=== PATIENT | female | born 1980 | race Caucasian/White ===

== ENCOUNTER 2017-09-12 05:43 | Day surgery (SDC) | payer OTHER ==
--- NOTE | 2017-09-11 21:21 | GHP ---
[f rep st] HISTORY AND PHYSICAL DATE OF ADMISSION: 09/12/2017 HISTORY OF PRESENT ILLNESS: Patient is a 36-year-old 3, term 0, 1, A1, living 1, who presents on 09/07/2017, for new OB. On the day of the new OB, patient had an ultrasound that showed size less than dates by 9 days and SIUP with no cardiac activity. Questionable uterine septum. in left horn. Right horn empty. Yolk sac is seen. Gestational sac is seen. Cardiac activity is not seen. Embryo is seen. number is 1. Gestational sac location is in the fundal left horn. Gestational age by LMP was supposed to be 8 weeks and 1 day. By ultrasound 6 weeks and 6 days. This is thought to be a missed AB. The patient denies bleeding, leaking, cramping. MEDICAL HISTORY: Borderline anemia, occasional pelvic cramping, mild nausea. No vomiting. Breast tenderness. History of exercise-induced asthma, outgrown, has never been intubated. History of depression as a teen, took Celexa. SURGICAL HISTORY: [place] teeth extraction, D and C, major accident, fractured right clavicle at 8 years old. Special diet, limits dairy. PREVIOUS HISTORY: In 2009 an EAB. In 10/19/2011, a female at 4 pounds 1 ounce at 33-3/7 weeks, 13 hours of labor, vaginally, PPROM at [facility]. GYNECOLOGICAL HISTORY: Menarche at 13 years old. Intervals are 28 days. Length are 7-9 days of light. Last menstrual period was 07/12/2017, certain, normal. test positive on 08/16/2017. LABS: The patient has not had any labs drawn. Needs blood type drawn and for possible RhoGAM if needed. Previous blood type with other , patient was O positive, antibody negative. Rubella titer was nonimmune. Hepatitis was negative. HIV was negative. Patient with this was requesting Zika testing because she went to [place]. PHYSICAL EXAMINATION: GENERAL: Patient was awake, alert, oriented x3. LUNGS: Clear bilaterally. ABDOMEN: Bowel sounds are positive in all 4 quadrants. EXTREMITIES: DTRs were 1+ bilaterally. Homans sign was negative bilaterally. ASSESSMENT AND PLAN: The patient was given risks, benefits, and alternatives to misoprostol, waiting x2 weeks, as well as D and C, and patient has chosen D and C as her option for care with a missed AB. Dr. Owens is aware that D and C is scheduled for tomorrow on 09/12/2017 at 7:30 in the a.m. /[id number]/MODL MTDD
[2017-09-12] MEDS ORDERED: LR 1,000 ML IV ONE (06:30)
[2017-09-12] MEDS ORDERED: DOXYCYCLINE HYCLATE 100 MG CAP/TAB PO ONE ×2 (06:30→11:30)
[2017-09-12] MEDS ORDERED: MIDAZOLAM 2 MG/2 ML VIAL IVP ONE (07:34)
--- NOTE | 2017-09-12 07:37 | PDANEPAE ---
ANE Past Medical History - Cardiovascular History Hx Hypertension: No Hx Arrhythmias: No Hx Coronary Artery / Peripheral Vascular Disease: No Hx CHF / Valvular Disease: No Cardiovascular History Comment: HX high BP maternal side of family. Maternal grandfather of heart failure in his 40s, grandmother of heart failure in her 60s. - Pulmonary History Hx COPD: No Hx Asthma/Reactive Airway Disease: Yes Hx Recent Upper Respiratory Infection: No Hx Oxygen in Use at Home: No Hx Sleep Apnea: No Pulmonary History Comment: exercise induced asthma until 2003 - Neurologic History Hx Cerebrovascular Accident: No Hx Seizures: No Hx Dementia: No - Endocrine History Hx Diabetes: No - Renal History Hx Renal Disorders: Yes Renal History Comment: kidney stones x1 2002. - Liver History Hx Hepatic Disorders: No - Neurological & Psychiatric Hx Hx Neurological and Psychiatric Disorders: No - Cancer History Hx Cancer: No - Congenital Disorder History Hx Congenital Disorders: No - GI History GERD: no Hx Gastrointestinal Disorders: No - Other Health History Other Health History: HX uterine polyp. - Chronic Pain History Chronic Pain: No - Surgical History Prior Surgeries: LEEP procedure x3 in past ANE Review of Systems Review of Systems: - Exercise capacity Exercise capacity: >=4 METS ANE Patient History - Allergies Allergies/Adverse Reactions: dextromethorphan HBr [From NyQuil] Allergy (Unknown, Verified 10/18/11 18:42) Other-Enter Comments doxylamine [From NyQuil] Allergy (Unknown, Verified 10/18/11 18:42) Other-Enter Comments guaifenesin [From Robitussin] Allergy (Unknown, Verified 03/28/14 03:23) pseudoephedrine HCl [From NyQuil] Allergy (Unknown, Verified 10/18/11 18:42) Other-Enter Comments - Anes Hx Anes Hx: no prior problems - Smoking Hx Smoking Status: Never smoked - Family Anes Hx Family Hx Anesthesia Complications: no ANE Labs/Vital Signs - Vital Signs Height: 167.64 cm Weight: 56.245 kg ANE Physical Exam - Airway Neck exam: FROM Mallampati Score: Class 1 Mouth exam: normal dental/mouth exam - Pulmonary Pulmonary: no respiratory distress, no rales or rhonchi, clear to auscultation - Cardiovascular Cardiovascular: regular rate and rhythym, no murmur, rub, or gallop - ASA Status ASA Status: I ANE Anesthesia Plan Anesthesia Plan: GA with mask
[2017-09-12] MEDS ORDERED: fentaNYL 100 MCG/2 ML INJ ONE (07:40)
[2017-09-12] MEDS ORDERED: KETOROLAC 30 MG/1 ML SDV ONE (07:40)
[2017-09-12] MEDS ORDERED: PROPOFOL 200 MG/20 ML VIAL ONE ×2 (07:40→09:05)
[2017-09-12] MEDS ORDERED: HYDROCODONE/APAP 5/325 TAB PO PRN (08:57)
[2017-09-12] MEDS ORDERED: NALOXONE HCL 0.4 MG/ML INJ IVP PRN (08:57)
[2017-09-12] MEDS ORDERED: ONDANSETRON 4 MG/2 ML VIAL IVP PRN (08:57)
[2017-09-12] MEDS ORDERED: DEXAMETHASONE 4 MG/ML VIAL IVP PRN (08:57)
[2017-09-12] MEDS ORDERED: LR 500 ML IV PRN (08:57)
[2017-09-12] MEDS ORDERED: PROMETHAZINE HCL 25 MG/ML INJ IVP PRN (08:57)
[2017-09-12] MEDS ORDERED: MEPERIDINE 25 MG/ML SYR IVP PRN (08:57)
[2017-09-12] MEDS ORDERED: ACETAMINOPHEN 500 MG TAB PO PRN (08:57)
[2017-09-12] MEDS ORDERED: fentaNYL 100 MCG/2 ML INJ IVP PRN (08:57)
--- NOTE | 2017-09-12 09:39 | POSTANESTH ---
Post Anesthetic Evaluation Cardiovascular Status: Normal, Stable, Similar to Pre-Op Cond Respiratory Status: Normal, Stable, Similar to Pre-op Cond. Level of Consciousness/Mental Status: Can Participate in Eval, Mildly Sleepy, Arousable Pain Control: Adequate, Prn Tx Ordered Nausea/Vomiting Control: Adequate, Prn Tx Ordered Complications Possibly Related to Anesthesia: None Noted
--- NOTE | 2017-09-12 10:53 | GOP ---
[f rep st] OPERATIVE REPORT DATE OF OPERATION: 09/12/2017 SURGEON: Beverly Owens MD ANESTHESIA: IV general anesthesia. ANESTHESIOLOGIST: Lucas Navarro MD. PREOPERATIVE DIAGNOSIS: Missed at 8 weeks. POSTOPERATIVE DIAGNOSIS: Missed at 8 weeks with atypical polypoid tissue on the ectocervix. PROCEDURE PERFORMED: 1. Dilation and curettage. 2. Cervical biopsy. FINDINGS: INDICATIONS: Patient is a 36-year-old, G3, P1, A1 at 8 weeks gestation, who was noted to have a miss ed AB measuring 6-7 weeks on ultrasound on September 07. No cardiac activity identified. The pa tient was counseled as to options. She was not having any bleeding and only minimal lower uterine cr amping. The patient decided to proceed with definitive management with a D and C for the missed AB. Risks and benefits were discussed with the patient and the consent form signed. The patient had a d ose of doxycycline prior to the procedure. She was wearing SCDs through the procedure. DESCRIPTION OF PROCEDURE: The patient was taken to the operating room where, following satisfactory IV general anesthetic, the patient was placed in dorsal lithotomy position. She had urinated prior t o coming to the operating room. The patient's perineum and vagina were prepped and the patient drape d in usual sterile manner for vaginal procedures. A sterile speculum was placed within the vagina an d an atraumatic grasper placed on the anterior lip of the cervix. Gentle traction was applied. Upon visualizing the cervix, there was evidence of atypical polypoid tissue on the posterior ectocervix f rom the 5 to the 7 o'clock positions. The cervix was easily dilated with Hegar dilators up to #8.5. The #8 tip was used on the suction machine. There was an appropriate amount of tissue obtained on m ultiple passes. Minimal bleeding after the suctioning. Sharp curettage was performed and there was minimal additional tissue, and 1 final pass with the suction revealed no additional tissue. The poly poid tissue on the posterior ectocervix was teased off with ring forceps, and there was minimal bleed ing at that site. This was sent as a separate specimen to Pathology. The atraumatic grasper was elroy en off the cervix, and there was no bleeding. The patient tolerated the procedure well. An abdomina l ultrasound was performed after the procedure, and the endometrial lining appeared thin. The patien t tolerated the procedure well, was taken to the recovery room in stable condition. /[id number]/MODL
== END 2017-09-12 12:15 | disposition home or self-care (01) ==
LOC: FOBOP 05:43
PROVIDERS: ATTEND Obstetrics & Gynecology
PROC: 10D17ZZ Extraction of Products of Conception, Retained, Via Natural or Artificial Opening (ICD-10-PCS; principal; 2017-09-12)
PROC: 0UBC7ZX Excision of Cervix, Via Natural or Artificial Opening, Diagnostic (ICD-10-PCS; principal; 2017-09-12)
DX: O02.1 Missed abortion (principal); N84.1 Polyp of cervix uteri; Z87.42 Personal history of other diseases of the female genital tract
CPT/HCPCS: J1885; J2250; J2704; J3010

== ENCOUNTER → 2018-03-29 | Outpatient (CLI) | payer OTHER | LOC: FIMAGING 12:22 | PROVIDERS: ATTEND Advanced Practice Midwife | DX: O09.521 Supervision of elderly multigravida, first trimester (principal); O09.291 Supervision of pregnancy with other poor reproductive or obstetric history, first trimester; Z3A.12 12 weeks gestation of pregnancy; Z82.49 Family history of ischemic heart disease and other diseases of the circulatory system ==

== ENCOUNTER → 2018-04-26 | Outpatient (CLI) | payer OTHER | LOC: FIMAGING 12:07 | PROVIDERS: ATTEND Advanced Practice Midwife | DX: O09.522 Supervision of elderly multigravida, second trimester (principal); D25.9 Leiomyoma of uterus, unspecified; Z3A.16 16 weeks gestation of pregnancy ==

== ENCOUNTER 2018-08-31 08:33 | Inpatient (IN) | payer MEDICAID, OTHER ==
[2018-08-31] MEDS ORDERED: OLIVE OIL 118 ML BTL ONE (08:49)
[2018-08-31] MEDS ORDERED: TERBUTALINE SULFATE 1 MG/ML VIAL ONE (08:49)
[2018-08-31] MEDS ORDERED: OXYTOCIN 10 UNIT/ML VIAL ONE (08:49)
[2018-08-31] MEDS ORDERED: AMMONIA AROMATIC 1 EACH AMP IH ONE (08:49)
[2018-08-31] MEDS ORDERED: MISOPROSTOL 200 MCG TAB ONE (08:49)
[2018-08-31] MEDS ORDERED: LIDOCAINE 1% 300 MG/30 ML SDV ONE (08:49)
[2018-08-31] MEDS ORDERED: AMPICILLIN SODIUM 2 GM in NS 100 ML IV ONE (09:12)
[2018-08-31] MEDS ORDERED: LIDOCAINE 1% 300 MG/30 ML SDV SC PRN (09:12)
[2018-08-31] MEDS ORDERED: OLIVE OIL 118 ML BTL MISC PRN (09:12)
[2018-08-31] MEDS ORDERED: EPSOM SALT 454 GM TP PRN (09:12)
[2018-08-31] MEDS ORDERED: MISOPROSTOL 200 MCG TAB PO PRN (09:12)
[2018-08-31] MEDS ORDERED: LR 1,000 ML IV PRN (09:12)
[2018-08-31] MEDS ORDERED: AMMONIA AROMATIC 1 EACH AMP IH PRN (09:12)
[2018-08-31] MEDS ORDERED: IBUPROFEN 600 MG TAB PO PRN (09:12)
[2018-08-31] MEDS ORDERED: OXYTOCIN/RINGERS LACTATE 1,000 ML IV PRN (09:12)
[2018-08-31] MEDS ORDERED: BETAMETHASONE IM SYRINGE IM ONE (10:06)
--- NOTE | 2018-08-31 10:20 | PDGENHP ---
History and Physical - Chief Complaint PROM - History of Present Illness 37 at 34w4d by LMP c/w 8 wk US, presents with gush of clear fluid at 0630 this morning. She has been having some irregular mild contractions since then. Good FM. NO VB, no ssx PIH. course c/b short cervix: had Cerclage placed at [facility] at 19w4d. She has been on vaginal progesterone nightly since then, and has had weekly cervical lengths done - all > 1cm. Last one just over a week ago was 1.6cm per pt recall. No other complications with course. labs all within normal limits, except pt is carrier for CF ( negative), and abnl 1 hr GTT at 133 - declined further testing. Innatal neg O pos Rub Imm History Information - Allergies/Home Medication List Allergies/Adverse Reactions: dextromethorphan HBr [From NyQuil] Allergy (Unknown, Verified 10/18/11 18:42) Other-Enter Comments doxylamine [From NyQuil] Allergy (Unknown, Verified 10/18/11 18:42) Other-Enter Comments guaifenesin [From Robitussin] Allergy (Unknown, Verified 03/28/14 03:23) pseudoephedrine HCl [From NyQuil] Allergy (Unknown, Verified 10/18/11 18:42) Other-Enter Comments I have personally reviewed and updated: family history, medical history, social history, surgical history Past Medical History: hx depression as a teen. cervical dysplasia - Surgical History Additional surgical history: LEEP x 3, [id number]. wisdom teeth age 17. D&C for MAB 2017. TAB 2009. hysteroscopy with polypectomy 2012 - Family History Positive for: non-pertinent - Social History Smoking Status: Never smoked Alcohol Use: None Drug Use: None Additional social history: to [place]. pt is self employed cdl instructor Review of Systems Review of Systems: ROS: 10pt was reviewed & negative except for what was stated in HPI & below Physical Exam Physical Exam: US done - confirms cephalic presentation with min fluid, MVP 1cm Spoke with Dr. Jesus Eaton [facility], at [facility] - he was able to access the op note from the cerclage placement at [facility]. Placed 05/17/18 - 2 Lopez Cerclages with prolene, both knots anterior with air knots. 36.9 85 99% on RA 113/68 Constitutional: no apparent distress, appears nourished Eyes: PERRL Ears, Nose, Mouth, Throat: moist mucous membranes, hearing normal, ears appear normal Cardiovascular: regular rate and rhythym, no murmur, rub, or gallop Respiratory: no respiratory distress, no rales or rhonchi, clear to auscultation Gastrointestinal: normoactive bowel sounds, soft, non-tender abdomen (gravid, NT US done and cephalic presentation confirmed) Genitourinary: no bladder fullness Skin: warm, normal color, mottled Musculoskeletal: full muscle strength Neurologic: AAOx3 Psychiatric: interacting appropriately, not anxious Lab Data & Imaging Review Membrane Rupture POSITIVE (NEGATIVE) H 08/31/18 08:55 Assessment & Plan Assessment: 37 at 34w4d with PROM, with cerclage in place. After speaking with ROSIE Franco, at [facility], agreed upon plan: 1) cephalic presentation confirmed. 2) GBS swab obtained 3) Start amp for GBS - and unknown 4) Betamethasone 5) Cerclage removal 6) Start induction Adrienne Dejesus MD, FACOG [facility]
[2018-08-31 10:23] LABS: PLATELET COUNT 258 10^3/uL (150-400)
--- NOTE | 2018-08-31 12:22 | OBPROG ---
Labor Progress Note Assessment/Plan: Assessment/ Plan: 37 at 34w4d with PROM just over 5 hours 1) GBS unknown - test pending, and ampicillin started at 1030 2) s/p betamethasone #1 at 1050 3) Cerclage just removed without incident and Cervix 4 / 80 / -2 4) If no labor in the next hour or so, will start pitocin. Pitocin B/R/A discussed with pt and - agreeable to Plan of Care - reviewed this plan was made in collaboration with MFM, Dr. Eaton, at [facility] Adrienne Dejesus MD, FACOG 08/31/18 12:15 Subjective/Intrapartum Course: Pt comfortable, mild irreg contractions. Still leaking clear fluid. 08/31/18 12:21 Objective: 08/31/18 10:12 Patient ABO/Rh O POSITIVE 08/31/18 10:12 Gen - pleasant, NAD FHR 150, now reactive after vibroacoustic stimulation, Cat 1 toco - q 2-5 Verbal consent obtained: In a sterile fashion, speculum inserted into vagina. Cervix identified, and with manipulation with a ring forcep, was able to identify both Lopez cerclage stitches on the anterior cervix. Each stitch was able to be grasped, and the air and snug knots identified, and one side of the cerclage was cut and the entire prolene suture was able to be removed x 2. Pt was temporarily uncomfortable, but tolerated procedure well. After cerclage removed, SVE = 4 / 80 / -2 - SVE Dilation (cm): 4 Effacement (%): 80 Station: -2 Membranes: SROM Amniotic Fluid Color: Clear - Contraction Pattern Assessment Current Contraction Pattern: Irregular - FHR Assessment Carrera FHR (bpm): 150 FHR Pattern Variability: Minimal FHR Category: 1 - Procedures Non-surgical Procedures: Other (Specify) (Lopez cerclage removal x 2) Oxytocin Orders Assessment - Pre-Induction/Augmentation Assessment Indication: PPROM Presentation: Vertex Gestational Age: 34 week(s) and 4 day(s) Gestational Age Determined By: Ultrasound (at 8 weeks), Last Menstral Period Estimated Weight: 2501-3400g Membrane Status: Ruptured Current Sterile Vaginal Exam (SVE): 4/80/-2 Current Contraction Pattern: Irregular - Heart Rate Pattern Carrera FHR Baseline (bpm): 150 FHR Category: 1 FHR Pattern Variability: Minimal FHR Accelerations: Present - Joiner's Score Dilation: 3-4cm Effacement: 80+ Station: -2 Cervix: Soft Cervix Position: Mid Joiner Score Total: 9 - Induction/Augmentation Consent Risks/Benefits of Procedure Reviewed/Pt Agrees to Proceed: Yes ICD10 Worksheet Patient Problems: Problems Problem Status Onset premature rupture of membranes (PPROM) with onset of labor within 24 hours of rupture in third trimester, antepartum Acute Short cervical length during in third trimester Acute - ICD10 Problem Qualifiers (1) premature rupture of membranes (PPROM) with onset of labor within 24 hours of rupture in third trimester, antepartum (2) Short cervical length during in third trimester
[2018-08-31] MEDS: AMPICILLIN SODIUM 1 GM in NS 100 ML IV SCH ×3 (14:07→22:27)
[2018-08-31] MEDS ORDERED: LR 500 ML IV PRN (14:22)
[2018-08-31] MEDS ORDERED: OXYTOCIN/RINGERS LACTATE 500 ML IV SCH (14:30)
--- NOTE | 2018-08-31 19:34 | OBPROG ---
Labor Progress Note Assessment/Plan: Assessment/ Plan: 37 at 34w4d with PROM just over 5 hours 1) GBS unknown - test pending, and ampicillin started at 1030 2) s/p betamethasone #1 at 1050 3) Cerclage just removed without incident and Cervix 4 / 80 / -2 4) If no labor in the next hour or so, will start pitocin. Pitocin B/R/A discussed with pt and - agreeable to Plan of Care - reviewed this plan was made in collaboration with MFM, Dr. Eaton, at [facility] Adrienne Dejesus MD, FACOG 08/31/18 12:15 A/P: 37 at 34w4d with PROM > 12 hours now, s/p cerclage removal, undergoing induction. GBS unknown - continue amp q 4 h s/p betameth #1 at 1050 Cerclage removed, have not repeated cervical exam - though pt feels like she is making progress. Pitocin was started at 1500 - now up to 12miu/hr Desires natural childbirth, will consider nitrous to assist with pain control. Adrienne Dejesus MD 08/31/18 19:28 Subjective/Intrapartum Course: Pt comfortable, mild irreg contractions. Still leaking clear fluid. 08/31/18 12:21 Objective: 08/31/18 10:12 Patient ABO/Rh O POSITIVE 08/31/18 10:12 pt has been walking and on the ball. - SVE Membranes: SROM Amniotic Fluid Color: Clear - Contraction Pattern Assessment Current Contraction Pattern: Irregular - FHR Assessment Carrera FHR (bpm): 150 (rare accel, but no decels) FHR Pattern Variability: Moderate FHR Category: 1 - Procedures Non-surgical Procedures: Other (Specify) (Lopez cerclage removal x 2) - Physical Exam Estimated Weight: 2501-3400g Oxytocin Orders Assessment - Pre-Induction/Augmentation Assessment Presentation: Vertex Gestational Age: 34 week(s) and 4 day(s) Estimated Weight: 2501-3400g ICD10 Worksheet Patient Problems: Problems Problem Status Onset premature rupture of membranes (PPROM) with onset of labor within 24 hours of rupture in third trimester, antepartum Acute Short cervical length during in third trimester Acute - ICD10 Problem Qualifiers (1) premature rupture of membranes (PPROM) with onset of labor within 24 hours of rupture in third trimester, antepartum (2) Short cervical length during in third trimester
--- NOTE | 2018-08-31 21:56 | OBPROG ---
Labor Progress Note Assessment/Plan: Assessment/ Plan: 37 at 34w4d with PROM just over 5 hours 1) GBS unknown - test pending, and ampicillin started at 1030 2) s/p betamethasone #1 at 1050 3) Cerclage just removed without incident and Cervix 4 / 80 / -2 4) If no labor in the next hour or so, will start pitocin. Pitocin B/R/A discussed with pt and - agreeable to Plan of Care - reviewed this plan was made in collaboration with MFM, Dr. Eaton, at [facility]. Adrienne Dejesus MD, FACOG 08/31/18 12:15 A/P: 37 at 34w4d with PROM > 12 hours now, s/p cerclage removal, undergoing induction. GBS unknown - continue amp q 4 h s/p betameth #1 at 1050 Cerclage removed, have not repeated cervical exam - though pt feels like she is making progress. Pitocin was started at 1500 - now up to 12miu/hr Desires natural childbirth, will consider nitrous to assist with pain control. Adrienne Dejesus MD 08/31/18 19:28 A/P: 37 with PPROM > 14 hours now, s/p cerclage removal, undergoing induction, but not in active labor yet. 1) GBS unknown- has received 2 doses of amp so far, test pending 2) s/p betameth 3) cervix unchanged - membranes stripped and possible scar tissue on cervix stretched with digital exam 4) Pit at 18, some variable heart rate decelerations noted, IUPC placed and will start an amnioinfusion 08/31/18 21:51 Subjective/Intrapartum Course: Pt comfortable, mild irreg contractions. Still leaking clear fluid. 08/31/18 12:21 08/31/18 21:56 Pt doing well, uncomfortable with contractions but breathing through them. Still leaking some clear fluid. Prefers to be out of bed, kneeling, ambulating or on the ball. Objective: 08/31/18 10:12 Patient ABO/Rh O POSITIVE 08/31/18 10:12 gen - pleasant, NAD - SVE Dilation (cm): 4 Effacement (%): 80 Station: -2 Membranes: SROM Amniotic Fluid Color: Clear - Contraction Pattern Assessment Current Contraction Pattern: Regular, Irregular - Procedures Non-surgical Procedures: IUPC (amnioinfusion to be started), Other (Specify) ( Lopez cerclage removal x 2) - Physical Exam Estimated Weight: 2501-3400g Oxytocin Orders Assessment - Pre-Induction/Augmentation Assessment Presentation: Vertex Gestational Age: 34 week(s) and 4 day(s) Gestational Age Determined By: Ultrasound, Last Menstral Period Estimated Weight: 2501-3400g Membrane Status: Ruptured Current Contraction Pattern: Regular - Joiner's Score Dilation: 3-4cm Effacement: 80+ Station: -2 Cervix: Soft Cervix Position: Mid Joiner Score Total: 9 - Induction/Augmentation Consent Risks/Benefits of Procedure Reviewed/Pt Agrees to Proceed: Yes (continue pitocin ) ICD10 Worksheet Patient Problems: Problems Problem Status Onset premature rupture of membranes (PPROM) with onset of labor within 24 hours of rupture in third trimester, antepartum Acute Short cervical length during in third trimester Acute - ICD10 Problem Qualifiers (1) premature rupture of membranes (PPROM) with onset of labor within 24 hours of rupture in third trimester, antepartum (2) Short cervical length during in third trimester
[2018-09-01] MEDS ORDERED: SIMETHICONE 80 MG TAB CHEW PO PRN (01:22)
[2018-09-01] MEDS ORDERED: DOCUSATE SODIUM 100 MG CAP PO PRN (01:22)
[2018-09-01] MEDS ORDERED: HYDROCORTISONE 0.5% CREAM TP PRN (01:22)
[2018-09-01] MEDS ORDERED: OXYTOCIN/RINGERS LACTATE 1,000 ML IV SCH (01:30)
--- NOTE | 2018-09-01 01:32 | OBDEL ---
Info Type: Vaginal Presentation at Delivery: Vertex L&D Analgesia/Anesthesia Type: Nitrous GBS+: No (unknown, GBS pending, , was given amp) Antibiotic Used for + GBS: Ampicillin Intrapartum Medications: Generic Name Dose Route Start Last Admin Trade Name Freq PRN Reason Stop Dose Admin Ampicillin Sodium 1 gm/ Sodium 100 mls @ 200 mls/hr 08/31/18 13:17 08/31/18 22:27 Chloride IV 09/30/18 13:16 100 mls Q4H NEHEMIAH Administration Protocol Lactated Ringer's 1,000 mls @ 0 mls/hr 08/31/18 09:12 08/31/18 18:15 Lr IV 09/01/18 09:11 1,000 mls PRN PRN Administration SEE PROTOCOL CONDITIONS Protocol Per Protocol Oxytocin/Lactated Ringer's 500 mls @ 0 mls/hr 08/31/18 14:30 08/31/18 15:00 Pitocin 30 Units/Lr (Premix) IV 02/27/19 14:29 500 mls CONT NEHEMIAH Administration Protocol Per Protocol Discontinued Medications Generic Name Dose Route Start Last Admin Trade Name Freq PRN Reason Stop Dose Admin Betamethasone Acet/Betameth SodPhos 12 mg 08/31/18 10:06 08/31/18 10:50 Celestone Im Syringe IM 08/31/18 10:07 12 mg ONCE ONE Administration Ampicillin Sodium 2 gm/ Sodium 110 mls @ 220 mls/hr 08/31/18 09:12 08/31/18 10:25 Chloride IV 08/31/18 09:41 110 mls ONCE ONE Administration Protocol Lactated Ringer's 500 mls @ 500 mls/hr 08/31/18 14:22 08/31/18 18:14 Lr IV 09/01/18 14:22 500 mls PRN PRN Administration Maternal Hypotension - Care Provider Focusing Machine Operator/REGISTERED NURSE SUPERVISOR: Elisha Dunham - Hospital Course Intrapartum: Pt comfortable, mild irreg contractions. Still leaking clear fluid. 08/31/18 12:21 08/31/18 21:56 Pt doing well, uncomfortable with contractions but breathing through them. Still leaking some clear fluid. Prefers to be out of bed, kneeling, ambulating or on the ball. Indications for Delivery: PPROM (at 34w4d, with cerclage which was removed. Received one dose of betamethasone 14 hours prior to delivery) Vaginal Delivery - Delivery Provider Delivery Physician/CNM: Adrienne Dejesus - Labor and Delivery Onset of Contractions Date: 08/31/18 Onset of Contractions Time: 22:00 Onset of Contractions Type: Induced Rupture of Membranes Date: 08/31/18 Rupture of Membranes Time: 06:30 Rupture of Membranes Type: Premature Amniotic Fluid Color: Clear Dilation Complete Date: 09/01/18 Dilation Complete Time: 00:43 Placenta Delivery Date: 09/01/18 Placenta Delivery Time: 00:43 Total Hours of Labor: 2 Non-surgical Procedures: IUPC (amnioinfusion to be started), Other (Specify) ( Lopez cerclage removal x 2) Laceration: 1st Degree (hemostatic, no repair indicted) Vaginal Sponge Count Correct: Yes Vaginal Needle Count Correct: Yes Vaginal Sweep Performed: Yes EBL: 400 Delivery Comment: PPROM at 0630 at 34w4d, amp at 1030, betameth at 1050, cerclage out at 1200, pitocin started 1500. Pt became uncomfortable with contractions around 2200, then quickly progressed to complete over the next 2.5 hours. Just prior to becoming complete, she used nitrous a few times. She pushed for < 13 minutes. vertex delivered NUZHAT -membranes removed from face to bulb suction. then delivered en caul, with baby up to maternal abdomen. REGISTERED NURSE SUPERVISOR Javon Dunham was in attendance. Due to being en caul, delayed cord clamping was not performed. After the cord was cut and clamped, the REGISTERED NURSE SUPERVISOR took the baby to the warmer. Some uterine atony was noted, so bimanual massage was performed with removal of clots from the lower uterine segment. A few first degree lacerations were noted at the perineum and bilateral labia - which became hemostatic with direct pressure, so no repairs indicated. left the room with the REGISTERED NURSE SUPERVISOR and CASHIER HOST/HOSTESS, to be taken to the NICU. Pt was cleaned up, was doing well, and was congratulated. - Medications Labor Augmentation/Induction Methods Used: Pitocin Labor Augmentation/Induction Indication: Inadequate Contraction Frequency, Inadequate Contraction Strength, Other (Specify) (PPROM at 34w4d) [place] Data ALYSON: 10/08/18 Gestational Age: 34 week(s) and 5 day(s) Carrera Delivery Date: 09/01/18 Delivery Time: 00:55 Sex of : Female ICD10 Worksheet Patient Problems: Problems Problem Status Onset premature rupture of membranes (PPROM) with onset of labor within 24 hours of rupture in third trimester, antepartum Acute Short cervical length during in third trimester Acute - ICD10 Problem Qualifiers (1) premature rupture of membranes (PPROM) with onset of labor within 24 hours of rupture in third trimester, antepartum (2) Short cervical length during in third trimester
[2018-09-01] MEDS: AMPICILLIN SODIUM 1 GM in NS 100 ML IV SCH (01:36)
[2018-09-01] MEDS: ACETAMINOPHEN 325 MG TAB PO SCH ×5 (04:43→23:05)
[2018-09-01] MEDS: IBUPROFEN 600 MG TAB PO SCH ×3 (08:11→21:07)
--- NOTE | 2018-09-01 14:49 | OBPP ---
Progress Note Assessment/Plan: Assessment: p2 ppd# 0 s/p baby in nicu routine post course Plan: 09/01/18 14:47 Subjective/ Course: 09/01/18 14:48 patient is doing well. resting now. normal lochia. denies headache and changes in vision. pumping. ambulating. voiding without difficulty. Objective: 08/31/18 10:12 Patient ABO/Rh O POSITIVE 08/31/18 10:12 Group B Strep DNA NEGATIVE (NEGATIVE) 08/31/18 10:05 Temp Pulse Resp BP Pulse Ox 36.1 C 67 16 88/58 L 95 09/01/18 08:00 09/01/18 08:00 09/01/18 08:00 09/01/18 08:00 09/01/18 04:30 Physical Exam - Physical Exam Neck: non-tender, full range of motion, supple Respiratory: chest non-tender, lungs clear, normal breath sounds Cardiac/Chest: normal peripheral pulses, regular rate, rhythm Abdomen: normal bowel sounds, non-tender, other (fundus firm and non tender) Extremities: normal range of motion, non-tender, normal inspection, normal capillary refill Skin: normal color, warm/dry Neuro/Psych: no motor/sensory deficits, alert, normal mood/affect, oriented x 3
[2018-09-02] MEDS: IBUPROFEN 600 MG TAB PO SCH ×2 (05:21→11:33)
[2018-09-02] MEDS: ACETAMINOPHEN 325 MG TAB PO SCH ×2 (05:22→11:33)
--- NOTE | 2018-09-02 09:42 | OBPP ---
Progress Note Assessment/Plan: Assessment/ Plan: 36 at 34w4d with PROM just over 5 hours 1) GBS unknown - test pending, and ampicillin started at 1030 2) s/p betamethasone #1 at 1050 3) Cerclage just removed without incident and Cervix 4 / 80 / -2 4) If no labor in the next hour or so, will start pitocin. Pitocin B/R/A discussed with pt and - agreeable to Plan of Care - reviewed this plan was made in collaboration with MFM, Dr. Eaton, at [facility]. Adrienne Dejesus MD, FACOG 08/31/18 12:15 A/P: 36 at 34w4d with PROM > 12 hours now, s/p cerclage removal, undergoing induction. GBS unknown - continue amp q 4 h s/p betameth #1 at 1050 Cerclage removed, have not repeated cervical exam - though pt feels like she is making progress. Pitocin was started at 1500 - now up to 12miu/hr Desires natural childbirth, will consider nitrous to assist with pain control. Adrienne Dejesus MD 08/31/18 19:28 A/P: 37 with PPROM > 14 hours now, s/p cerclage removal, undergoing induction, but not in active labor yet. 1) GBS unknown- has received 2 doses of amp so far, test pending 2) s/p betameth 3) cervix unchanged - membranes stripped and possible scar tissue on cervix stretched with digital exam 4) Pit at 18, some variable heart rate decelerations noted, IUPC placed and will start an amnioinfusion 08/31/18 21:51 A/P: 36 PPD#2 s/p after PPROM at 34w4d Doing well - ready to be discharged to [facility], baby doing great in NICU PP instructions reviewed, including ssx of pp depression. See dc summary. Adrienne Dejesus MD 09/02/18 11:26 Subjective/ Course: 09/01/18 14:48 patient is doing well. resting now. normal lochia. denies headache and changes in vision. pumping. ambulating. voiding without difficulty. 09/02/18 11:28 Doing great. Baby doing well in NICU. Pumping. Ambulating and voiding without difficulty. Lochia reasonable and decreasing. Eating normally. Ready to be discharged from patient status. Objective: 08/31/18 10:12 Patient ABO/Rh O POSITIVE 08/31/18 10:12 Group B Strep DNA NEGATIVE (NEGATIVE) 08/31/18 10:05 Temp Pulse Resp BP Pulse Ox 36.3 C 77 16 98/66 L 93 09/01/18 21:07 09/01/18 21:07 09/01/18 21:07 09/01/18 21:07 09/01/18 21:07 gen - pleasant, NAD CV - RRR chest - CTAB abd - soft, NT, fundus firm u-3 ext - trace edema BLE, no calf tenderness, Adán's neg Uterine Position/Fundal Height: Umbilicus -2 Uterine Tone: Firm
[2018-09-02 10:15] VITALS: BP 100/66
--- NOTE | 2018-09-02 11:43 | OBGCSDC ---
General Delivery Information - General Info : 4 Para: 2 Abortions: 2 Type: Vaginal L&D Analgesia/Anesthesia Type: Nitrous Admission Date: 08/31/18 Labs: Patient ABO/Rh O POSITIVE 08/31/18 10:12 Hct 38.0 % (38.0-47.0) 08/31/18 10:12 Group B Strep DNA NEGATIVE (NEGATIVE) 08/31/18 10:05 - Hospital Course Intrapartum: Pt comfortable, mild irreg contractions. Still leaking clear fluid. 08/31/18 12:21 08/31/18 21:56 Pt doing well, uncomfortable with contractions but breathing through them. Still leaking some clear fluid. Prefers to be out of bed, kneeling, ambulating or on the ball. : 09/01/18 14:48 patient is doing well. resting now. normal lochia. denies headache and changes in vision. pumping. ambulating. voiding without difficulty. 09/02/18 11:28 Doing great. Baby doing well in NICU. Pumping. Ambulating and voiding without difficulty. Lochia reasonable and decreasing. Eating normally. Ready to be discharged from patient status. Vaginal - Delivery Provider Delivery Physician/CNM: Adrienne Dejesus - Diagnosis Labor: Induced Rupture of Membranes Type: Premature Amniotic Fluid Color: Clear Laceration: 1st Degree (hemostatic, no repair indicted) - Procedures Non-surgical Procedures: IUPC (amnioinfusion to be started), Other (Specify) ( Lopez cerclage removal x 2) - Delivery Non-surgical Procedures: IUPC (amnioinfusion to be started), Other (Specify) ( Lopez cerclage removal x 2) EBL: 400 Data ALYSON: 10/08/18 Gestational Age: 34 week(s) and 6 day(s) [place] Delivery Date: 09/01/18 Delivery Time: 00:55 Sex of Infant: Female [place] Weight (gm): 2060 g Score (1 Min): 7 Score (5 Min): 8 Discharge Information - Discharge Information Condition: Good Instruction/Follow Up: See Instruction Sheet, Four Weeks ([facility]), Six Weeks ( exam at [facility])
== END 2018-09-02 12:55 | disposition home or self-care (01) | DRG 807 ==
LOC: FLD 08:33 → OBSVTOIN 09:18 → FOB 09-01 02:52
PROVIDERS: ADMIT Hospitalist; ATTEND Hospitalist
PROC: 10E0XZZ Delivery of Products of Conception, External Approach (ICD-10-PCS; principal; 2018-08-31)
DX: O42.013 Preterm premature rupture of membranes, onset of labor within 24 hours of rupture, third trimester (principal); Z37.0 Single live birth; Z3A.34 34 weeks gestation of pregnancy; O70.0 First degree perineal laceration during delivery
CPT/HCPCS: J0290; J0702; J2590; J3105